=== PATIENT | female | born 2000 | race Caucasian/White ===

== ENCOUNTER 2024-06-17 08:18 | Emergency (ER) | payer BC, OTHER ==
[2024-06-17] MEDS ORDERED: Ondansetron 8 MG in Sodium Chloride 0.9% 100 ML IV ONE (08:48)
[2024-06-17] MEDS ORDERED: Sodium Chloride 0.9% 500 ML IV ONE (08:48)
[2024-06-17 08:50] LABS: BASOPHILS PERCENT AUTO 0.1 % (0.2-1.2); EOSINOPHILS ABSOLUTE AUTO 0.1 x10^3/uL (0.0-0.5); EOSINOPHILS PERCENT AUTO 0.5 % (0.0-4.0); HEMATOCRIT 38.9 % (33.0-47.0); HEMOGLOBIN 13.6 g/dL (12.0-16.0); IMMATURE GRAN ABSOLUTE AUTO 0.04 x10^3/uL (0.00-0.07); LYMPHOCYTES ABSOLUTE AUTO 1.3 x10^3/uL (1.0-4.8); LYMPHOCYTES PERCENT AUTO 9.5 % (25.0-50.0); MEAN CORPUSCULAR HEMOGLOBIN 29.2 pg (26.0-32.0); MEAN CORPUSCULAR VOLUME 83.5 fL (78.0-93.0); MONOCYTES ABSOLUTE AUTO 0.7 x10^3/uL (0.0-0.8); MONOCYTES PERCENT AUTO 5.4 % (2.0-11.0); NEUTROPHILS ABSOLUTE AUTO 11.6 x10^3/uL (1.8-7.7); NEUTROPHILS PERCENT AUTO 84.2 % (50.0-80.0); PLATELET COUNT,PLT 192 x10^3/uL (130-400); RED BLOOD CELL COUNT 4.66 x10^6/uL (4.00-5.50); WHITE BLOOD CELL COUNT,WBC 13.8 x10^3/uL (4.0-10.0)
[2024-06-17 09:10] LABS: LACTIC ACID 2.1 mmol/L (0.4-2.0)
[2024-06-17] MEDS: Ondansetron 4 MG/2 ML SDV IVPUSH ONE (09:10)
[2024-06-17] MEDS: Sodium Chloride 0.9% 1,000 ML IV SCH (09:10)
[2024-06-17] MEDS: Ketorolac 30 MG/ML SDV IVPUSH ONE (09:10)
[2024-06-17 09:15] LABS: A/G RATIO 0.94; ALANINE AMINOTRANSFERASE,ALT 23 U/L (14-59); ALBUMIN 3.2 g/dL (3.4-5.0); ALKALINE PHOSPHATASE 87 U/L (46-116); ASPARTATE AMNIOTRANSFERASE,AST 18 U/L (15-37); BILIRUBIN TOTAL 0.6 mg/dL (0.2-1.0); BLOOD UREA NITROGEN,BUN 11 mg/dL (7-18); CARBON DIOXIDE,CO2 21 mmol/L (21-32); CHLORIDE,CL 104 mmol/L (98-107); CREATININE 1.1 mg/dL (0.55-1.02); GLUCOSE RANDOM 106 mg/dL (70-99); POTASSIUM,K 3.5 mmol/L (3.5-5.1); PROTEIN TOTAL,TP 6.6 g/dL (6.4-8.2); SODIUM,NA 138 mmol/L (136-145)
[2024-06-17 09:16] LABS: ANION GAP 16.5 mmol/L (5-15); ESTIMATED GFR 72 mL/min (>=60)
[2024-06-17] MEDS: cefTRIAXone 2 GM Vial IVPUSH ONE (09:37)
[2024-06-17 10:09] LABS: BILIRUBIN,URINE SMALL (NEGATIVE); COLOR,URINE DARK YELLOW (YELLOW); GLUCOSE,URINE NEGATIVE (NEGATIVE); KETONES,URINE 15 mg/dL (NEGATIVE); LEUKOCYTE ESTERASE,URINE TRACE (NEGATIVE); NITRITE,URINE NEGATIVE (NEGATIVE); OCCULT BLOOD,URINE NEGATIVE (NEGATIVE); PROTEIN,URINE 100 mg/dL (NEGATIVE); UROBILINOGEN,URINE 0.2 EU/dL (0.2)
[2024-06-17 10:13] LABS: APPEARANCE,URINE SLIGHTLY CLOUDY (CLEAR)
[2024-06-17 10:19] LABS: BACTERIA,URINE FEW /HPF (NOT SEEN); MUCUS,URINE MANY /LPF (NOT SEEN); RBC,URINE 0-5 /HPF (NOT SEEN); SQUAMOUS EPITHELIAL CELLS,UR FEW /HPF (NOT SEEN)
[2024-06-17] MEDS: Lactated Ringers 1,000 ML IV ONE (10:39)
[2024-06-17] MEDS: Acetaminophen 500 MG Tab PO ONE (10:54)
[2024-06-17] MEDS: Ciprofloxacin 500 MG Tab PO ONE (10:54)
[2024-06-17] MEDS: Acetaminophen/HYDROcodone 325-5 MG Tab PO ONE (11:55)
== END 2024-06-17 11:59 | disposition home or self-care (01) ==
LOC: VM.ED 08:18
DX: N30.00 Acute cystitis without hematuria (principal); Z79.899 Other long term (current) drug therapy
CPT/HCPCS: 36415; 80053; 81001; 81025; 83605; 85025; 86140; 87040; 87086; 87088; 96361; 96374; 96375; 99284; A9270; J0696; J1885; J2405; J7030; J7120